=== PATIENT | female | born 1990 | race American Indian/Alaskan Native ===

== ENCOUNTER 2018-12-05 01:46 | Emergency (ER) | payer SELFPAY ==
[2018-12-05 02:23] LABS: Basophils # (Auto) 0.1 K/mm3 (0.0-0.1); Basophils % (Auto) 1.2 % (0.0-1.8); Eosinophils # (Auto) 0.1 K/mm3 (0.0-0.4); Eosinophils % (Auto) 0.8 % (0.0-4.3); Hematocrit 32.9 % (30.3-42.9); Hemoglobin 10.8 gm/dl (10.1-14.3); Lymphocytes # (Auto) 3.5 K/mm3 (1.2-5.4); Lymphocytes % (Auto) 34.3 % (13.4-35.0); Mean Corpuscular HGB Conc 33 % (30-34); Monocytes # (Auto) 0.6 K/mm3 (0.0-0.8); Platelet Count 332 K/mm3 (140-440); Red Blood Count 4.76 M/mm3 (3.65-5.03); Red Cell Distribution Width 19.6 % (13.2-15.2)
[2018-12-05] MEDS ORDERED: ZOFRAN IV ONE (02:29)
[2018-12-05] MEDS ORDERED: DILAUDID IV ONE (02:29)
--- NOTE | 2018-12-05 02:32 | Emergency Department Report ---
ED General Adult HPI - General Chief complaint: Sickle Cell Crisis Stated complaint: SICKLE CELL Time Seen by Provider: 12/05/18 02:18 Source: patient, RN notes reviewed Mode of arrival: Ambulatory Limitations: No Limitations - History of Present Illness Initial comments: This is a 28-year-old female. This patient is not known to this provider previously. The patient states she recently moved here from [facility] Patient states that she has a history of sickle cell disease. The patient also states that she has a history of splenectomy and cholecystectomy. The patient presents to the ER complaining of her sickle cell pain. She complains of pain in her chest wall, back, upper extremities and lower extremity is. She is not sure what may have triggered her pain. The patient denies recent road trips or airplane trips within the past 2-3 weeks. She denies urinary symptoms. She also complains of epigastric and bilateral upper quadrant abdominal pain. She is not able to describe the nature of her pain. Her pain typically improves with hydromorphone. She is also nauseous at this typically improves with Zofran. She is not sure if she gets this kind of pain with her typical sickle cell crises. No fevers that she is aware within the past 24 hours. -: Gradual, hour(s) Location: chest, back, abdomen, left, right, upper extremity, lower extremity Radiation: other Quality: other Consistency: other Improves with: other Worsens with: other - Related Data Previous Rx's Medication Instructions Recorded Last Taken Type Acetaminophen [Non-Aspirin Extra 500 mg PO Q6HR PRN #30 tablet 12/05/18 Unknown Rx Strength] Famotidine [Pepcid] 20 mg PO BID #30 tablet 12/05/18 Unknown Rx Rochelle Root [Rochelle] 250 mg PO QID PRN #30 capsule 12/05/18 Unknown Rx Ondansetron [Zofran Odt] 4 mg PO Q8HR PRN #20 tab.rapdis 12/05/18 Unknown Rx Allergies Allergy/AdvReac Type Severity Reaction Status Date / Time fentanyl Allergy Itching Verified 12/05/18 01:55 metoclopramide [From Reglan] Allergy Itching Verified 12/05/18 01:56 ED Review of Systems ROS: Stated complaint: SICKLE CELL Other details as noted in HPI Constitutional: malaise Eyes: denies: eye discharge ENT: denies: epistaxis Respiratory: denies: cough Cardiovascular: chest pain Gastrointestinal: abdominal pain, nausea Genitourinary: denies: dysuria Musculoskeletal: back pain, arthralgia, myalgia Skin: denies: lesions Neurological: weakness Psychiatric: anxiety ED Past Medical Hx - Past Medical History Previous Medical History?: Yes Hx Sickle Cell Disease: Yes - Surgical History Past Surgical History?: Yes Hx Cholecystectomy: Yes Additional Surgical History: spleen - Social History Smoking Status: Never Smoker Substance Use Type: Marijuana - Medications Home Medications: Home Medications Medication Instructions Recorded Confirmed Last Taken Type Acetaminophen [Non-Aspirin Extra 500 mg PO Q6HR PRN #30 tablet 12/05/18 Unknown Rx Strength] Famotidine [Pepcid] 20 mg PO BID #30 tablet 12/05/18 Unknown Rx Rochelle Root [Rochelle] 250 mg PO QID PRN #30 capsule 12/05/18 Unknown Rx Ondansetron [Zofran Odt] 4 mg PO Q8HR PRN #20 tab.rapdis 12/05/18 Unknown Rx ED Physical Exam - General Limitations: No Limitations General appearance: alert, anxious - Head Head exam: Present: atraumatic, normocephalic - Eye Eye exam: Present: normal appearance, EOMI. Absent: nystagmus - ENT ENT exam: Present: normal exam, normal orophraynx, mucous membranes moist, normal external ear exam - Neck Neck exam: Present: normal inspection, full ROM. Absent: tenderness, meningismus - Respiratory Respiratory exam: Present: normal lung sounds bilaterally. Absent: respiratory distress - Cardiovascular Cardiovascular Exam: Present: normal rhythm, tachycardia, normal heart sounds. Absent: systolic murmur, diastolic murmur, rubs, gallop - GI/Abdominal GI/Abdominal exam: Present: soft. Absent: distended, tenderness, guarding, rebound, rigid, pulsatile mass - Extremities Exam Extremities exam: Present: normal inspection, full ROM, other (2+ pulses noted in the bilateral upper, lower extremities. Compartments soft. No long bony tenderness. The pelvis is stable.). Absent: pedal edema, joint swelling, calf tenderness - Back Exam Back exam: Present: normal inspection, full ROM. Absent: tenderness, CVA tenderness (R), CVA tenderness (L), paraspinal tenderness, vertebral tenderness - Neurological Exam Neurological exam: Present: alert, oriented X3, other (Extraocular movements intact. Tongue midline. No facial droop. Facial sensation intact to light touch in the V1, V2, V3 distribution bilaterally. 5 and 5 strength in 4 extremities.. Sensation is intact to light touch in 4 extremities.). Absent: m otor sensory deficit - Psychiatric Psychiatric exam: Present: anxious - Skin Skin exam: Present: warm, dry, intact, normal color. Absent: rash ED Course Vital Signs 12/05/18 12/05/18 12/05/18 01:51 02:20 02:30 Temperature 98.6 F 98.5 F Pulse Rate 107 H 89 Respiratory 20 9 L 16 Rate Blood Pressure 153/75 Blood Pressure 103/73 [Left] O2 Sat by Pulse 100 100 Oximetry 12/05/18 12/05/18 12/05/18 03:01 03:10 03:40 Temperature Pulse Rate 70 Respiratory 13 18 17 Rate Blood Pressure 103/73 Blood Pressure [Left] O2 Sat by Pulse 99 Oximetry 12/05/18 12/05/18 04:05 05:50 Temperature Pulse Rate 84 77 Respiratory 18 16 Rate Blood Pressure 96/62 Blood Pressure 107/68 [Left] O2 Sat by Pulse 97 99 Oximetry - Reevaluation(s) Reevaluation #1: 12/05/18 04:00 Differential diagnosis, including not limited to: Sickle cell pain, narcotic dependence, GERD, gastritis, hiatal hernia, pneumonia, acute coronary syndrome, pulmonary embolism, urinary tract infection, obstruction Assessment and plan: 28-year-old female, resolved tachycardia, not hypoxic, not tachypneic, with no physical exam findings to suggest DVT and a negative d- dimer, do not suspect pulmonary embolism at this time. Hemoglobin, hematocrit, reticulocyte count unremarkable; patient's sickle cell screen is found to be negative. Remaining objective laboratory studies unremarkable. Troponin negative, patient at low risk for major adverse cardiac event as per the heart score. We did not have access to formal hemoglobin electrophoresis to confirm or refute her purported diagnosis of sickle cell crisis. We will treat her pain. CT scan of the abdomen and pelvis is ordered. Repeat EKG, repeat troponin pending. X-ray of the chest unremarkable. Reevaluation #2: 12/05/18 04:50 Repeat EKG is unchanged from prior and unremarkable. CT scan of abdomen and pelvis is negative for acute disease. Of note, the spleen is noted this is inconsistent with the patient's reported surgical history. Evidence of prior cholecystectomy is noted. Patient is resting comfortably, and stretcher, and in no acute distress. She has not endorsed any lower abdominal pain at this time, she has not endorsed any urinary symptoms. Therefore, urinary tract infection is not likely. Her objective laboratory testing and radiographic testing and cardiographic testing have been unremarkable. The patient does not appear to have an emergent medical condition at this time. Patient will be discharged with instructions to follow-up Reevaluation #3: 12/05/18 05:48 At the time of discharge, now asking for prescription for Seroquel. Patient is informed that this provided is not prescribed this medication on a routine basis. The patient can follow up with an outpatient mental health facility to address his request and necessity thereof. ED Medical Decision Making - Lab Data Result diagrams: 12/05/18 02:04 12/05/18 02:40 Vital Signs 12/05/18 12/05/18 12/05/18 01:51 02:30 03:10 Temperature 98.6 F 98.5 F Pulse Rate 107 H 89 Respiratory 20 16 18 Rate Blood Pressure 153/75 Blood Pressure 103/73 [Left] O2 Sat by Pulse 100 100 Oximetry Lab Results 12/05/18 12/05/18 12/05/18 Range/Units 02:04 02:04 02:04 WBC 10.1 (4.5-11.0) K/mm3 RBC 4.76 (3.65-5.03) M/mm3 Hgb 10.8 (10.1-14.3) gm/dl Hct 32.9 (30.3-42.9) % MCV 69 L (79-97) fl MCH 23 L (28-32) pg MCHC 33 (30-34) % RDW 19.6 H (13.2-15.2) % Plt Count 332 (140-440) K/mm3 Lymph % (Auto) 34.3 (13.4-35.0) % Henry % (Auto) 6.0 (0.0-7.3) % Eos % (Auto) 0.8 (0.0-4.3) % Baso % (Auto) 1.2 (0.0-1.8) % Lymph # 3.5 (1.2-5.4) K/mm3 Henry # 0.6 (0.0-0.8) K/mm3 Eos # 0.1 (0.0-0.4) K/mm3 Baso # 0.1 (0.0-0.1) K/mm3 Seg Neutrophils % 57.7 (40.0-70.0) % Seg Neutrophils # 5.8 (1.8-7.7) K/mm3 Percent Retic 1.21 (0.78-2.58) % Sickle Cell Screen Negative (Negative) PT (12.2-14.9) Sec. INR (0.87-1.13) APTT (24.2-36.6) Sec. D-Dimer (0-234) ng/mlDDU Sodium (137-145) mmol/L Potassium (3.6-5.0) mmol/L Chloride (98-107) mmol/L Carbon Dioxide (22-30) mmol/L Anion Gap mmol/L BUN (7-17) mg/dL Creatinine (0.7-1.2) mg/dL Estimated GFR ml/min BUN/Creatinine Ratio % Glucose (65-100) mg/dL Calcium (8.4-10.2) mg/dL Magnesium (1.7-2.3) mg/dL Total Bilirubin (0.1-1.2) mg/dL AST (5-40) units/L ALT (7-56) units/L Alkaline Phosphatase (35-129) units/L Total Creatine Kinase (30-135) units/L Troponin T (0.00-0.029) ng/mL Total Protein (6.3-8.2) g/dL Albumin (3.9-5) g/dL Albumin/Globulin Ratio % Lipase (13-60) units/L HCG, Qual Negative (Negative) 12/05/18 12/05/18 Range/Units 02:40 03:00 WBC (4.5-11.0) K/mm3 RBC (3.65-5.03) M/mm3 Hgb (10.1-14.3) gm/dl Hct (30.3-42.9) % MCV (79-97) fl MCH (28-32) pg MCHC (30-34) % RDW (13.2-15.2) % Plt Count (140-440) K/mm3 Lymph % (Auto) (13.4-35.0) % Henry % (Auto) (0.0-7.3) % Eos % (Auto) (0.0-4.3) % Baso % (Auto) (0.0-1.8) % Lymph # (1.2-5.4) K/mm3 Henry # (0.0-0.8) K/mm3 Eos # (0.0-0.4) K/mm3 Baso # (0.0-0.1) K/mm3 Seg Neutrophils % (40.0-70.0) % Seg Neutrophils # (1.8-7.7) K/mm3 Percent Retic (0.78-2.58) % Sickle Cell Screen (Negative) PT 13.1 (12.2-14.9) Sec. INR 1.02 (0.87-1.13) APTT 30.7 (24.2-36.6) Sec. D-Dimer < 135.0 (0-234) ng/mlDDU Sodium 137 (137-145) mmol/L Potassium 4.1 (3.6-5.0) mmol/L Chloride 98.9 (98-107) mmol/L Carbon Dioxide 25 (22-30) mmol/L Anion Gap 17 mmol/L BUN 13 (7-17) mg/dL Creatinine 0.8 (0.7-1.2) mg/dL Estimated GFR > 60 ml/min BUN/Creatinine Ratio 16 % Glucose 89 (65-100) mg/dL Calcium 9.8 (8.4-10.2) mg/dL Magnesium 2.30 (1.7-2.3) mg/dL Total Bilirubin 0.20 (0.1-1.2) mg/dL AST 23 (5-40) units/L ALT 13 (7-56) units/L Alkaline Phosphatase 58 (35-129) units/L Total Creatine Kinase 87 (30-135) units/L Troponin T < 0.010 (0.00-0.029) ng/mL Total Protein 8.3 H (6.3-8.2) g/dL Albumin 4.6 (3.9-5) g/dL Albumin/Globulin Ratio 1.2 % Lipase 33 (13-60) units/L HCG, Qual (Negative) - EKG Data -: EKG Interpreted by Ga EKG shows normal: sinus rhythm Rate: normal - EKG Data When compared to previous EKG there are: previous EKG unavailable 12/05/18 04:02 This is a normal sinus rhythm, 90 bpm, normal axis, QTC within normal limits, motion artifact, this EKG is abnormal, the EKG is not consistent with ST elevation myocardial infarction - Radiology Data Radiology results: pending, report reviewed, image reviewed X-ray of the chest is negative for acute disease. CT scan of the abdomen and pelvis: Print Report Referring Physician: RACHEL LUNDBERG Patient Name: HOLLEY DICKEY Date of : 1990 Sex: Female Report Date: 2018-12-05 Report Status: Finalized Findings [facility] [address] [place] [address] Cat Scan Report Signed Patient: HOLLEY DICKEY MR#: [id number] 03 : 1990 Acct:[id number] Age/Sex: 28 / F ADM Date: 12/05/18 Loc: ED Attending Dr: Ordering Physician: RACHEL LUNDBERG MD Date of Service: 12/05/18 Procedure(s): CT abdomen pelvis w con Accession Number(s): [id number] cc: RACHEL LUNDBERG MD CT abdomen pelvis w con INDICATION: abd pain ; states splenectomy and cholecystectyomy. TECHNIQUE: All CT scans at this location are performed using the following dose modulation technique: Automated exposure control. CONTRAST: Omnipaque 300, 100 cc IV injection. COMPARISON: None available. CT ABDOMEN: The parenchymal organs are unremarkable in appearance including the spleen. Negative for abdominal mass, fluid collection or inflammation. The bowel is not dilated or thickened. Status post previous cholecystectomy. Mild prominence of the biliary system is likely on this basis. CT PELVIS: Negative for pelvic mass, fluid collection or inflammation. A left ovarian cyst measures 4.1 x 2.9 cm and has a small amount of adjacent free fluid. IMPRESSION: 1. Negative for obstruction. 2. Left ovarian cyst with mild adjacent fluid. Signer Name: Saturnino Novoa MD Signed: 12/05/2018 4:32 AM Workstation Name: [id number] Transcribed By: ES Dictated By: Saturnino Novoa MD Electronically Authenticated By: Saturnino Novoa MD Signed Date/Time: 12/05/18431 DD/ 5 Critical care attestation.: If time is entered above; I have spent that time in minutes in the direct care of this critically ill patient, excluding procedure time. ED Disposition Clinical Impression: Epigastric abdominal pain Disposition: DC-01 TO HOME OR SELFCARE Is pt being admited?: No Does the pt Need Aspirin: No Condition: Stable Additional Instructions: Avoid consumption of Motrin, ibuprofen, Naprosyn, Aleve, heavy, spicy foods. Follow-up with the primary care doctor or mallet cutter for complaint of upper abdominal pain and chest pain within the next 3-5 days. Screening initial laboratory studies indicated that it is very unlikely that the patient has sickle cell disease. However, the patient should follow-up with a primary care doctor or registered respiratory technician, within the next 4 weeks for outpatient confirmatory testing, in the form of hemoglobin electrophoresis. This evening, the patient had a sickle cell screen sent, which came back negative for sickle cell disease. The patient may take the prescribed pain medication, nausea medications as needed/directed. Return to the emergency room right away with projectile vomiting, change in mental status, confusion, inability to tolerate liquid feeds, new, worsening or different symptoms not present on the initial emergency room evaluation. Local extension service specialist in charge include the following doctors: Luciano Edge Prescriptions: Rochelle Root [Rochelle] 250 mg PO QID PRN #30 capsule PRN Reason: Nausea Acetaminophen [Non-Aspirin Extra Strength] 500 mg PO Q6HR PRN #30 tablet PRN Reason: Pain , Severe (7-10) Famotidine [Pepcid] 20 mg PO BID #30 tablet Ondansetron [Zofran Odt] 4 mg PO Q8HR PRN #20 tab.rapdis PRN Reason: Nausea Referrals: [facility] [Provider Group] - 3-5 Days [facility] [Provider Group] - 3-5 Days [facility] [Provider Group] - 3-5 Days KEVIN EDGE MD [Staff Physician] - 3-5 Days CLARISSA FIERRO DO [Staff Physician] - 3-5 Days
[2018-12-05 02:36] LABS: Mean Corpuscular Volume 69 fl (79-97)
[2018-12-05 03:17] LABS: Alanine Aminotransferase 13 units/L (7-56); Albumin 4.6 g/dL (3.9-5); BUN/Creatinine Ratio 16; Blood Urea Nitrogen 13 mg/dL (7-17); Calcium 9.8 mg/dL (8.4-10.2); Hemolysis Index 21
[2018-12-05 03:23] LABS: INR 1.02 (0.87-1.13)
[2018-12-05 03:26] LABS: Partial Thromboplastin Time 30.7 Sec. (24.2-36.6)
[2018-12-05] MEDS ORDERED: PEPCID IV ONE (03:41)
[2018-12-05] MEDS ORDERED: NACL 0.9% 1000 ML 1,000 ML IV ONE (03:41)
--- NOTE | 2018-12-05 03:49 | XRay Report ---
CHEST 2 VIEWS INDICATION: cp sickle cell crisis. COMPARISON: None. FINDINGS: Support devices: None. Heart: Within normal limits. Lungs/Pleura: No acute air space or interstitial disease. No significant pleural effusion. IMPRESSION: No acute findings. Signer Name: Saturnino Novoa MD Signed: 12/05/2018 3:44 AM Workstation Name: [id number]
--- NOTE | 2018-12-05 04:37 | Cat Scan Report ---
CT abdomen pelvis w con INDICATION: abd pain ; states splenectomy and cholecystectyomy. TECHNIQUE: All CT scans at this location are performed using the following dose modulation technique: Automated exposure control. CONTRAST: Omnipaque 300, 100 cc IV injection. COMPARISON: None available. CT ABDOMEN: The parenchymal organs are unremarkable in appearance including the spleen. Negative for abdominal mass, fluid collection or inflammation. The bowel is not dilated or thickened. Status post previous cholecystectomy. Mild prominence of the biliary system is likely on this basis. CT PELVIS: Negative for pelvic mass, fluid collection or inflammation. A left ovarian cyst measures 4 .1 x 2.9 cm and has a small amount of adjacent free fluid. IMPRESSION: 1. Negative for obstruction. 2. Left ovarian cyst with mild adjacent fluid. Signer Name: Saturnino Novoa MD Signed: 12/05/2018 4:32 AM Workstation Name: [id number]
[2018-12-05 06:00] VITALS: BP 107/68
== END 2018-12-05 05:50 | disposition home or self-care (01) ==
LOC: ED 01:46
DX: R10.13 Epigastric pain (principal); R07.89 Other chest pain; D57.00 Hb-SS disease with crisis, unspecified; F12.10 Cannabis abuse, uncomplicated; Z90.49 Acquired absence of other specified parts of digestive tract; Z88.8 Allergy status to other drugs, medicaments and biological substances
CPT/HCPCS: 36415; 71046; 74177; 80053; 82550; 83690; 83735; 84484; 84703; 85025; 85045; 85379; 85610; 85660; 85730; 93005; 93010; 96374; 96375; 99284; J1170; J2405; J7030; Q9967